=== PATIENT | male | born 1950 | race Caucasian/White ===

== ENCOUNTER → 2017-02-11 | Outpatient (CLI) | payer OTHER ==
[~2017-02-11] MED LIST: ASPIR 8181 M1 PO; ATORVASTATIN CA40 MG PO; COREG25 MG PO; GLUCOPHAGE XR750 MG PO; HYDROCHLOROTHIA25 M2 PO; LEVEMIR SUBQ; LISINOPRIL20 MG PO; NOVOLOG100 UNIT/1 SUBQ; XALATAN2.5 ML OPHTHALMIC
--- NOTE | ~2017-02-11 | EKG ---
[place] [address] [facility] [place] [address] ELECTROCARDIOGRAM REPORT Name: SHELBY VENTURA [facility] [id number] Admission: 02/11/17 Attend Phys: Physician not on staff Discharge: Date of : 50 Report #: [id number] THIS REPORT FOR: //name// [facility] Test Date: 2017-02-11 Test Time: 12:51:39 Pat Name: SHELBY VENTURA Department: Room: Gender: Orthopedic Radiologic Technologist: ANNE MARIE : 1950 Requested By: Physician staff Order Number: [id number] MD: Danilo Razo Measurements Intervals [place] Rate: 73 P: 5 TN: 163 QRS: -4 QRSD: 92 T: 22 QT: 407 QTc: 449 Interpretive Statements Sinus rhythm Inferior infarct, old Consider anterior infarct No previous ECG available for comparison Electronically Signed On 02-11-2017 13:00:48 CDT by Danilo Razo [email or web address] <ELECTRONICALLY SIGNED> By: Danilo Razo MD 02/11/17 1300 1251 1251 MD TILA Yost
== END | disposition home or self-care (01) ==
LOC: LITH 11:55
DX: N20.0 Calculus of kidney (principal); Z53.9 Procedure and treatment not carried out, unspecified reason; I10 Essential (primary) hypertension; E78.00 Pure hypercholesterolemia, unspecified; E11.9 Type 2 diabetes mellitus without complications; M10.9 Gout, unspecified; G47.33 Obstructive sleep apnea (adult) (pediatric); F32.9 Major depressive disorder, single episode, unspecified; Z88.2 Allergy status to sulfonamides; Z88.8 Allergy status to other drugs, medicaments and biological substances
CPT/HCPCS: 50010